=== PATIENT | female | born 1980 | race Caucasian/White ===

== ENCOUNTER 2023-02-21 17:09 | Emergency (ER) | payer MEDICAID ==
[~2023-02-21] VITALS: Ht 165.1 cm; Wt 91.0 kg
[2023-02-21 17:24] VITALS: TEMP 98.5; O2SAT 100
[2023-02-21] MEDS ORDERED: DEXAMETHASONE 10 MG/ML VIAL PO ONE (19:45)
[2023-02-21] MEDS ORDERED: KETOROLAC 30MG/ML VIAL IM ONE (19:45)
[2023-02-21] MEDS ORDERED: TOPUD MT (22:06)
[2023-02-21] MEDS ORDERED: NAPR-679 MT (22:06)
[2023-02-21] MEDS ORDERED: OFLO5DRO4 EACH EAR (22:06)
[2023-02-21 22:27] VITALS: BP 140/89; PULSE 99; RESP 16
== END 2023-02-21 22:28 | disposition home or self-care (01) ==
LOC: ER 17:09
DX: H61.23 Impacted cerumen, bilateral (principal); H60.91 Unspecified otitis externa, right ear; J02.8 Acute pharyngitis due to other specified organisms
CPT/HCPCS: 81025; 87430; 87070; 69210; 96372; 99284; J1100; J1885; Z7610; 99283